=== PATIENT | female | born 1985 | race Caucasian/White ===

== ENCOUNTER → 2017-06-03 | Outpatient (CLI) | payer OTHER ==
[~2017-06-03] MED LIST: ALB0.5V IH; AZIT500T PO; CEFD300C3 PO; DCS100C PO; FLX10C PO; GUAI473L29 PO; IBP800T PO; LANS15CA PO; METR45GE9 TP; METR60GE; NEBU1EAC10 MC; NEBU1EAC2 MC; ONDA8TAB9 PO; OXYC1TAB12 PO; PREN1TAB71 PO; RT-ALBUINH IH
== END ==
LOC: RT 12:00
PROVIDERS: ATTEND Internal Medicine Critical Care Medicine
DX: J18.9 Pneumonia, unspecified organism (principal); R06.00 Dyspnea, unspecified; R05 Cough
CPT/HCPCS: 94060; 94726; 94729

== ENCOUNTER → 2017-06-20 | Outpatient (CLI) | payer OTHER ==
[~2017-06-20] MED LIST changes: +IOHEXOL 350 MG/ML 150 ML (OMNIPAQUE 350) VIAL IV ONE; +NS 100 ML (IVPB) BAG IV ONE
[2017-06-20 13:06] LABS: BLOOD UREA NITROGEN 9 MG/DL (7-18); BUN/CREATININE RATIO 11; GFR ESTIMATED > 60
--- NOTE | 2017-06-20 13:52 | Diagnostic Imaging Report ---
PROCEDURE: CT angiography of the chest with contrast. TECHNIQUE: Multiple contiguous axial images were obtained through the chest after uneventful bolus administration of intravenous contrast. Reconstructed CTA MIP acquisitions were also performed. INDICATION: Shortness of breath and wheezing COMPARISON: 04/11/2016 FINDINGS: Vasculature: No pulmonary emboli. No CT evidence of pulmonary hypertension or right ventricular strain. Thoracic aorta is normal in caliber. No aortic dissection or pseudoaneurysm. Heart and mediastinum: Visualized thyroid is normal. No supraclavicular, axillary, or intra-thoracic lymphadenopathy. A small amount of residual thymic tissue is present in the anterior mediastinum, which is unchanged. The heart is normal in size without pericardial effusion. Pleura: No pleural effusion or pneumothorax. Lungs and airway: No endoluminal lesion in the trachea or central bronchi. No pulmonary mass, nodule or consolidation. Upper abdomen: Allowing for the phase of contrast, no acute abnormality in the upper abdomen is seen. Musculoskeletal: No concerning osseous lesion. IMPRESSION: 1. No acute cardiopulmonary process. Specifically, no pulmonary emboli or acute aortic syndrome. Dictated by: Dictated on workstation # [id number]
[2017-06-21 01:55] LABS: IGE DETAIL 17.6 IU/mL
[2017-06-21 08:11] LABS: INT IGE See Footnote
[2017-06-21 08:36] LABS: ELM TREE <0.35 kU/L (<0.35); ELM TREE CL CLASS 0; KENT BLUE CL CLASS 0; KENTUCKY BLUE GRASS RAST <0.35 kU/L (<0.35); OAK TREE <0.35 kU/L (<0.35); OAK TREE CL CLASS 0; PECAN TR CL CLASS 0
[2017-06-21 08:37] LABS: ALT TEN CL CLASS 0; BERMUDA CL CLASS 0; BERMUDA GRASS RAST <0.35 kU/L (<0.35); CAT DANDER CL CLASS 0; CAT DANDER RAST <0.35 kU/L (<0.35); DOG DANDER CL CLASS 0; DOG DANDER RAST <0.35 kU/L (<0.35); DUST MITE CL CLASS 0; DUST MITE RAST <0.35 kU/L (<0.35); JOHNSON GR CL CLASS 0; JOHNSON GRASS RAST <0.35 kU/L (<0.35); MARSH ELDER RAST <0.35 kU/L (<0.35); RAGWEED CL CLASS 0; RAGWEED RAST <0.35 kU/L (<0.35); ROUGH MARSH CL CLASS 0
[2017-06-21 08:38] LABS: CLADOSPORIUM CL CLASS 0; CLADOSPORIUM MOLD RAST <0.35 kU/L (<0.35)
== END ==
LOC: RAD 12:26
PROVIDERS: ATTEND Nurse Practitioner Family
DX: R94.2 Abnormal results of pulmonary function studies (principal); R06.00 Dyspnea, unspecified
CPT/HCPCS: 36415; 71275; 82565; 82785; 84520; 84703; 86003

== ENCOUNTER → 2017-06-27 | Outpatient (CLI) | payer OTHER ==
[~2017-06-27] MED LIST changes: -IOHEXOL 350 MG/ML 150 ML (OMNIPAQUE 350) VIAL IV ONE; -NS 100 ML (IVPB) BAG IV ONE
[2017-06-27 11:50] LABS: BASOPHILS % (AUTO) 1 % (0-10); EOSINOPHILS # (AUTO) 0.1 10^3/uL (0.0-0.3); EOSINOPHILS % (AUTO) 3 % (0-10); LYMPHOCYTES # (AUTO) 1.7 X 10^3 (1.0-4.0); LYMPHOCYTES % (AUTO) 34 % (12-44); MEAN CORPUSCULAR HEMOGLOBIN 33 PG (25-34); MEAN CORPUSCULAR HGB CONC 36 G/DL (32-36); MEAN CORPUSCULAR VOLUME 92 FL (80-99); MEAN PLATELET VOLUME 9.7 FL (7.4-10.4); MONOCYTES # (AUTO) 0.4 X 10^3 (0.0-1.0); MONOCYTES % (AUTO) 9 % (0-12); NEUTROPHILS # (AUTO) 2.6 X 10^3 (1.8-7.8); NEUTROPHILS % (AUTO) 54 % (42-75); PLATELET COUNT 232 10^3/uL (130-400); RED CELL DISTRIBUTION WIDTH 12.6 % (10.0-14.5); WHITE BLOOD COUNT 4.9 10^3/uL (4.3-11.0)
== END ==
LOC: LAB 11:33
PROVIDERS: ATTEND Internal Medicine Critical Care Medicine
DX: J45.909 Unspecified asthma, uncomplicated (principal); R06.00 Dyspnea, unspecified
CPT/HCPCS: 36415; 85025

== ENCOUNTER 2022-03-08 05:35 | Outpatient (CLI) | payer BC, OTHER ==
[~2022-03-08] VITALS: Ht 170.1 cm; Wt 72.9 kg
[~2022-03-08 05:35] MED LIST changes: +GFCD10B PO; -GUAI473L29 PO
[2022-03-13] MEDS ORDERED: SERT-413 PO (10:52)
[2022-03-13] MEDS ORDERED: SUMA100T3 PO (10:52)
== END 2022-03-13 11:22 | disposition home or self-care (01) ==
LOC: PREOP 05:35
PROVIDERS: ATTEND Obstetrics & Gynecology
DX: Z01.818 Encounter for other preprocedural examination (principal)

== ENCOUNTER 2022-03-15 11:42 | Day surgery (SDC) | payer BC ==
[~2022-03-15] VITALS: Ht 170 cm; Wt 72.9 kg
[2022-03-15] VITALS (9 sets, daily range): BP systolic 100–123; BP diastolic 42–66
--- NOTE | 2022-03-15 09:41 | Progress Note-Pre Operative ---
Pre-Operative Progress Note H&P Reviewed The H&P was reviewed, patient examined and no changes noted. Date Seen by Provider: Mar 15, 2022 Time Seen by Provider: 12:20 Date H&P Reviewed: Mar 15, 2022 Time H&P Reviewed: 12:20 Pre-Operative Diagnosis: Menometrorrhagia / Intrauterine mass KENIA AMARO MD Mar 15, 2022 09:41
--- NOTE | 2022-03-15 09:42 | Progress Note-Post Operative ---
Post-Operative Progess Note Surgeon (s)/[employer] ([employer]) Surgeon KENIA AMARO MD [employer]: Olga Pre-Operative Diagnosis Menometrorrhagia and intrauterine mass Post-Operative Diagnosis Same with pathology pending Procedure & Operative Findings Date of Procedure 03/15/22 Procedure Performed/Findings Total laparoscopic hysterectomy with bilateral salpingectomyAnd adhesiolysis Anesthesia Type General Estimated Blood Loss Estimated blood loss (mL): Minimal Specimens/Packing Specimens Removed Uterus and fallopian tubes KENIA AMARO MD Mar 15, 2022 09:42
--- NOTE | 2022-03-15 09:46 | Discharge Inst-Surgical ---
Discharge Inst-Surgical Depart Medication/Instructions New, Converted or Re-Newed RX: Transmitted to Pharmacy Consults/Follow Up Patient Instructions: As directed Orders & Referrals Follow Up Appt: Return to clinic on Saturday, March 19, 2022 for staple removal Call to make follow up appt. for patient in 4 weeks. Activity: Rest for 24 hours, than as tolerated. Wound Care: May remove Band-Aid tomorrow. Replace as desired. Keep incisions clean and dry. Wash daily with soap and water. Prescriptions for Percocet Motrin and Colace have been sent to patient's pharmacy by my office Diet: As tolerated shower or tub bathe as desired. No driving for 24 hours, no alcoholic beverages for 24 hours, and nothing per vagina (no tampons, douching, or intercourse) for 8 weeks. Patient to return to the clinic as soon as possible for: Temperature greater than 101F, Severe Pain, Foul discharge from incision or vagina, Excessive Bleeding (more than a period). Activity Activity as Tolerated: No Diet Discharge Diet: No Restrictions KENIA AMARO MD Mar 15, 2022 09:46
[~2022-03-15 11:42] MED LIST changes: +ESTROGENS CONJ INJECTION 25 MG in WATER (STERILE) FOR INJECTION 5 ML IV ONE; +KETOROLAC 30 MG/ML VIAL IVP SCH; +ONDANSETRON 4 MG/2 ML (SDV) Z0FRAN IVP PRN; +PROMETHAZINE INJ 25 MG/ML (PHENERGAN) AMP IM PRN; +SERT-413 PO; +SUMA100T3 PO; +fentaNYL INJ 100 MCG/2 ML AMP IVP PRN
[2022-03-15] MEDS ORDERED: LACTATED RINGERS 1,000 ML IV PRN (12:30)
[2022-03-15] MEDS ORDERED: ceFAZolin INJECTION 1,000 MG VIAL IV ONE (12:30)
[2022-03-15] MEDS ORDERED: LIDOCAINE/EPI 2% 1:100,00 (XYLOCAINE) 20 ML VIAL ONE (12:44)
[2022-03-15] MEDS ORDERED: LIDOCAINE PF 2% 5 ML (XYLOCAINE) VIAL ONE (12:58)
[2022-03-15] MEDS ORDERED: proPOfol 200 MG/20 ML (DIPRIVAN) VIAL IV ONE (12:58)
[2022-03-15] MEDS ORDERED: MIDAZOLAM 2 MG/2 ML (VERSED) VIAL ONE (12:58)
[2022-03-15] MEDS ORDERED: SEVOFLURANE (ULTANE) 15 ML INHAL SOLN ONE (12:58)
[2022-03-15] MEDS ORDERED: fentaNYL INJ 100 MCG/2 ML AMP ONE ×2 (12:58→15:49)
[2022-03-15] MEDS ORDERED: ROCURONIUM 50 MG/5 ML (ZEMURON) VIAL IV ONE (12:58)
[2022-03-15] MEDS ORDERED: ONDANSETRON 4 MG/2 ML (SDV) Z0FRAN ONE (12:58)
[2022-03-15 13:34] LABS: BASOPHILS % (AUTO) 1 % (0-10); EOSINOPHILS # (AUTO) 0.3 10^3/uL (0.0-0.3); EOSINOPHILS % (AUTO) 5 % (0-10); HEMATOCRIT 42 % (35-52); HEMOGLOBIN 14.1 g/dL (11.5-16.0); LYMPHOCYTES # (AUTO) 2.3 10^3/uL (1.0-4.0); LYMPHOCYTES % (AUTO) 43 % (12-44); MEAN CORPUSCULAR HEMOGLOBIN 32 pg (25-34); MEAN CORPUSCULAR HGB CONC 34 g/dL (32-36); MEAN CORPUSCULAR VOLUME 96 fL (80-99); MEAN PLATELET VOLUME 9.9 fL (9.0-12.2); MONOCYTES # (AUTO) 0.4 10^3/uL (0.0-1.0); MONOCYTES % (AUTO) 8 % (0-12); NEUTROPHILS # (AUTO) 2.4 10^3/uL (1.8-7.8); NEUTROPHILS % (AUTO) 44 % (42-75); PLATELET COUNT 307 10^3/uL (130-400); WHITE BLOOD COUNT 5.5 10^3/uL (4.3-11.0)
[2022-03-15] MEDS ORDERED: NEOSTIGMINE (BLOXIVERZ ) 1 MG/1ML 10 ML VIAL ONE (15:02)
[2022-03-15] MEDS ORDERED: GLYCOPYRROLATE 0.2 MG/ML (ROBINUL) 2 ML VIAL ONE (15:02)
[2022-03-15] MEDS ORDERED: morphine INJ 10 MG/ML 1ML (SYR OR VIAL) ONE (15:27)
[2022-03-15] MEDS ORDERED: ONDANSETRON 4 MG/2 ML (SDV) Z0FRAN IVP PRN (15:30)
[2022-03-15] MEDS ORDERED: fentaNYL INJ 100 MCG/2 ML AMP IVP ONE (15:30)
[2022-03-15] MEDS ORDERED: morphine INJ 10 MG/ML 1ML (SYR OR VIAL) IVP ONE (15:30)
[2022-03-15] MEDS ORDERED: MEPERIDINE (DEMEROL) INJ 50 MG/ML IVP ONE (15:30)
[2022-03-15] MEDS ORDERED: KETOROLAC 30 MG/ML VIAL ONE (16:32)
[2022-03-15] MEDS: D5 LR IV SOLUTION 1,000 ML IV SCH (16:32)
[2022-03-15] MEDS: oxyCODONE/APAP 5/325MG (PERCOCET 5) TABLET PO PRN ×2 (17:40→18:50)
[2022-03-15] MEDS ORDERED: SIMETHICONE 80 MG (MYLICON) CHEW ONE (20:33)
[2022-03-15] MEDS: DOCUSATE SODIUM 100 MG (COLACE) CAP PO SCH (20:35)
[2022-03-15] MEDS: SIMETHICONE 80 MG (MYLICON) CHEW PO SCH (20:36)
[2022-03-15] MEDS: KETOROLAC 30 MG/ML VIAL IVP SCH (22:08)
[2022-03-16 00:30] VITALS: BP 105/58
[2022-03-16] MEDS: oxyCODONE/APAP 5/325MG (PERCOCET 5) TABLET PO PRN (01:51)
[2022-03-16] MEDS: D5 LR IV SOLUTION 1,000 ML IV SCH (01:51)
--- NOTE | 2022-03-16 02:33 | OPERATIVE REPORT ---
DATE OF SERVICE: 03/15/2022 PREOPERATIVE DIAGNOSES: Menorrhagia and menometrorrhagia and intrauterine mass. POSTOPERATIVE DIAGNOSES: Menorrhagia and menometrorrhagia and intrauterine mass with pelvic adhesions and with pathology pending. OPERATIVE PROCEDURE: Total laparoscopic hysterectomy with bilateral salpingectomies as well as extensive adhesiolysis. OPERATIVE DESCRIPTION: With the patient in the supine position under satisfactory general anesthesia, she was repositioned in dorsal lithotomy position in the [facility] and prepped and draped in the usual fashion for abdominal and vaginal surgery using the da Mckayla equipment for assistance. Dupont catheter was placed in the urinary bladder after placing a Tiffanie II manipulator in the uterus in the usual manner using a 6 mm x 8 cm uterine probe and a 30 mm colpotomy ring. Sutures of #1 Vicryl placed at 3 and 9 o'clock position of the cervix to affix the uterus to the manipulator. The patient was brought in low dorsal lithotomy position. A 12 mm incision made superior to the umbilicus. Veress needle was placed through that incision into the abdominal cavity. An attempt was made to do that that was unsuccessful, so the Veress needle was placed through the stab wound at the apex of the umbilicus successfully. Abdomen was insufflated with 2.4 liters of carbon dioxide and the Veress needle was removed and a 12 mm Optiview laparoscopic port was placed through the midline incision and 8 mm incisions were made 8 cm lateral to the umbilicus at a level about 3 cm superior to the umbilicus. All three port sites were infiltrated with 1% lidocaine with epinephrine prior to incision. The patient now placed in Trendelenburg allowing the bowel spill out of the pelvis. The bowel remained adherent to the left pelvic brim and obscuring access to the left tube and ovary. The da Mckayla column was advanced on the patient, docked and operative instrument placed in right and left lateral ports and I retired to the da Mckayla console. At the console, using a vessel sealer on the right and a bipolar fenestrated grasper on the left, the pelvis was examined. The adhesions of the sigmoid to the left pelvic brim and the terminus of the left pericolic gutter were taken down bluntly, sharply and with electrocautery to free the bowel and expose the left pelvic brim and the left IP ligament. With that done, both ovaries appeared relatively normal. There was some evidence of endometriosis in the cul-de-sac and in the ovarian fossae. Both fallopian tubes were tortuous and clubbed on the end. The uterus was relatively normal in appearance, but did appear to have some mottling consistent with adenomyosis. Laparoscope was rotated. The appendix was normal vermiform appendix. There were some adhesions of the cecum to the terminus of the right pericolic gutter. These were light filmy were taken free. The appendix was left in situ. Attention was turned back to the pelvis. The right fallopian tube was grasped and elevated. The mesosalpinx was clamped, cauterized and divided across stepwise to the uteroovarian pedicle. The uteroovarian pedicle was then clamped, cauterized and divided also with the vessel sealer that was continued across the round ligament, across the broad ligament and down on the cardinal ligament. Same procedure performed on the left, thus allowing for both removal of both fallopian tubes and conservation of both ovaries. Anterior lower uterine segment peritoneum was exposed and using a monopolar shear on the right instead of the vessel sealer. The anterior lower uterine segment peritoneum was divided. The bladder was carefully dissected down off the lower uterine segment and colpotomy incision was started at 12 o'clock position onto the colpotomy ring. Colpotomy incision was continued circumferentially until the entire colpotomy ring was exposed and then the uterus with the tubes still attached was extracted through the vagina. The vaginal cuff was closed with a single suture V-Loc barbed suture starting from the right angle and continuing across to the left in a running fashion. Care was taken to ensure inclusion of the uterine vessel pedicles bilaterally. Both ovaries were retained and were in situ. Both ureters were seemed peristalsing freely and were not enlarged. With no bleeding and no remaining abnormal pathology, the procedure was terminated. The operative instruments were removed under direct vision as were the ports. The abdomen was evacuated of the insufflating gas in the process of removing the ports. Skin incisions were closed with yelena after closing the fascia at the supraumbilical incision with [id number] suture of 2-0 Vicryl. A speculum was placed in the vagina. The vaginal cuff was examined. It was completely hemostatic and completely reapproximated. Sponge and needle counts were now correct. Blood loss was minimal. The patient was uneventfully awakened from her general anesthesia and transferred to the recovery room in stable condition. Job ID: [id number] DocumentID: [id number] Dictated Date: 03/15/2022 15:06:19 Restaurant Crew Member Date: 03/16/2022 02:33:14 Dictated By: KENIA AMARO MD MTDD
[2022-03-16 04:30] VITALS: BP 102/57
[2022-03-16] MEDS: KETOROLAC 30 MG/ML VIAL IVP SCH (04:30)
[2022-03-16] MEDS ORDERED: DOCUSATE SODIUM 100 MG (COLACE) CAP PO SCH (09:00)
--- NOTE | 2022-03-16 09:04 | Progress Note ---
Standard Progress Note Progress Notes/Assess & Plan Date Seen by a Provider: Mar 16, 2022 Time Seen by a Provider: 09:03 Progress/Assessment & Plan This patient is without complaint. She is ambulating, tolerating oral intake well. Her Dupont catheter was removed she has not voided just yet. She has good pain control. Vital Signs Date Time Temp Pulse Resp B/P (MAP) Pulse Ox O2 Delivery O2 Flow Rate FiO2 03/16/22 04:30 36.4 75 18 102/57 (72) 98 Room Air 03/16/22 00:30 36.0 77 16 105/58 (74) 98 Room Air 03/15/22 21:32 Room Air 03/15/22 20:20 36.8 79 16 123/62 (82) 99 Room Air 03/15/22 16:22 36.4 74 16 108/56 (73) 99 Room Air 03/15/22 16:10 Room Air 03/15/22 16:00 36.3 16 102/44 (63) 96 Room Air 03/15/22 15:55 Room Air 03/15/22 15:50 36.3 15 102/66 (78) 95 Room Air 03/15/22 15:40 Room Air 03/15/22 15:40 36.3 16 101/59 (73) 100 Room Air 03/15/22 15:30 36.3 18 104/59 (74) 100 Room Air 03/15/22 15:28 OxyMask 5.00 03/15/22 15:23 36.3 16 100/48 (65) 100 OxyMask 5.00 03/15/22 15:13 36.3 16 106/42 (63) 100 OxyMask 10.00 03/15/22 15:13 OxyMask 10.00 03/15/22 12:15 36.4 78 18 119/66 (83) 100 Room Air I & O 03/16/22 07:00 Intake Total 3400 ml Output Total 2700 ml Balance 700 ml Vital signs are stable. Patient is afebrile. The abdomen is benign. Extremities show no clubbing cyanosis. There is no Homans' sign. Pelvic exam was deferred Assessment and plan Postoperative day #1 doing well. Plan is for routine convalescent care with discharge home today and follow-up in clinic Final Diagnosis Menorrhagia/menometrorrhagia PREM,KENIA G MD Mar 16, 2022 09:04
[2022-03-16 09:05] VITALS: BP 115/67
[2022-03-16] MEDS: DOCUSATE SODIUM 100 MG (COLACE) CAP PO SCH (09:18)
[2022-03-16] MEDS: SIMETHICONE 80 MG (MYLICON) CHEW PO SCH (09:18)
[2022-03-16] MEDS ORDERED: IBUPROFEN 800 MG (MOTRIN) TAB PO SCH (10:00)
--- NOTE | 2022-03-16 10:48 | Anesthesia-General Post-Op ---
General Patient Condition Mental Status/LOC: Same as Preop Cardiovascular: Satisfactory Nausea/Vomiting: Absent Respiratory: Satisfactory Pain: Controlled Complications: Absent Post Op Complications Complications None Follow Up Care/Instructions Patient Instructions None needed. Anesthesia/Patient Condition Patient Condition Patient is doing well, no complaints, stable vital signs, no apparent adverse anesthesia problems. No complications reported per nursing. SILVERIO MORATAYA CRNA Mar 16, 2022 10:48
[2022-03-16 12:12] VITALS: BP 115/67
== END 2022-03-16 12:10 | disposition home or self-care (01) ==
LOC: SDC 11:42 → WS 16:11 → SDC 03-16 12:10
PROVIDERS: ATTEND Obstetrics & Gynecology
DX: D25.1 Intramural leiomyoma of uterus (principal); N84.1 Polyp of cervix uteri; N72 Inflammatory disease of cervix uteri; G43.909 Migraine, unspecified, not intractable, without status migrainosus; F32.A Depression, unspecified; N83.8 Other noninflammatory disorders of ovary, fallopian tube and broad ligament; N92.1 Excessive and frequent menstruation with irregular cycle
CPT/HCPCS: 36415; 84703; 85025; 87081; 94664